=== PATIENT | male | born 1990 | race American Indian/Alaskan Native ===

== ENCOUNTER 2019-12-12 18:22 | Emergency (ER) | payer SELFPAY ==
[2019-12-12 19:08] VITALS: BP 123/64
--- NOTE | 2019-12-12 19:13 | Emergency Department Report ---
Chief Complaint: Dental/Oral Stated Complaint: BROKEN TOOTH Time Seen by Provider: 12/12/19 19:05 - HPI History of Present Illness: Patient is a 29-year-old male presents emergency room with complaints of a broken tooth to the left upper jaw that occurred today. He states that he also has a broken tooth to the right upper jaw. He states he saw a dentist 2 months ago and was referred to an oral surgeon but did not follow-up. He states he was prescribed amoxicillin and tramadol at that time. He denies any fever, chills, vomiting, facial swelling, difficulty swallowing. No allergies to medications. Vitals are stable On exam: Dental decay and cracked tooth present to the right back jawline and left back gumline, no induration or erythema of the gumline, no facial edema, uvula is midline, no uvular edema or deviation, no muffled voice, no trismus Examination consistent with dental caries and dental decay No signs of dental abscess, infected dental caries, facial cellulitis or infection at this time Patient will be referred to a dentist Discussed the importance of dental follow-up with the patient Discussed strict return precautions and discussed signs of infection Medical screening examination performed there is no threat to life or limb at th is time - Exam Vital Signs: Vital Signs 12/12/19 19:06 Temperature 97.9 F Pulse Rate 55 L Respiratory 16 Rate Blood Pressure 123/64 O2 Sat by Pulse 100 Oximetry MSE screening note: Focused history and physical exam performed. ED Disposition for MSE Clinical Impression: Cracked tooth, Dental caries Disposition: MED SCREENING EXAM-LEFT Is pt being admited?: No Does the pt Need Aspirin: No Condition: Stable Instructions: Dental Caries (ED) Additional Instructions: Alternate ibuprofen and then Tylenol every 6-8 hours as needed for discomfort. Gargle with warm salt water. Follow-up with a dentist. It is very important that he follow-up for a permanent solution. Return to emergency room immediately for any new or worsening symptoms. Referrals: [facility] [Outside] - 2-3 Days [facility] [Outside] - 2-3 Days Time of Disposition: 19:10 Print Language: KOREAN
== END 2019-12-12 19:05 | disposition home or self-care (01) ==
LOC: ED 18:22
DX: K03.81 Cracked tooth (principal); K02.9 Dental caries, unspecified; Z53.21 Procedure and treatment not carried out due to patient leaving prior to being seen by health care provider